=== PATIENT | female | born 1990 | race Caucasian/White ===

== ENCOUNTER 2019-08-11 15:13 | Emergency (ER) | payer MEDICAID ==
[~2019-08-11] VITALS: Ht 162.6 cm; Wt 65.3 kg
[~2019-08-11 15:13] MED LIST: ALPR-624 PO; AMOX-419 PO; ESCI10TA PO; IBUP-2697 PO; LACT1CAP26 PO
[2019-08-11 15:39] LABS: URINE HCG POSITIVE (NEG)
[2019-08-11 15:47] LABS: CLARITY,URINE SLIGHTLY CLOUDY (Clear); COLOR,URINE YELLOW (Yellow); GLUCOSE, URINE NEGATIVE (Neg); KETONES,URINE NEGATIVE (Neg); LEUKOCYTE ESTERASE ,URINE SMALL (Neg); NITRITES, URINE NEGATIVE (Neg); OCCULT BLOOD,URINE NEGATIVE (Neg); PROTEIN,URINE NEGATIVE (Neg); UROBILINOGEN,URINE 0.2 E.U/dL (0.2-1.0)
[2019-08-11 15:51] LABS: UA COLLECTION TYPE CLN CATCH MIDSTREAM
[2019-08-11 16:07] LABS: MUCUS STRANDS MANY /LPF (Neg); SQUAMOUS EPITHELIAL CELL,UR MANY /LPF (FEW)
[2019-08-11 16:08] LABS: BACTERIA,URINE 2+ /HPF (Neg); RBC,URINE 0-2 /HPF (0-2); WBC,URINE 0-4 /HPF (0-4)
[2019-08-11 17:24] VITALS: BP 116/70
== END 2019-08-11 17:25 | disposition home or self-care (01) ==
LOC: ER 15:13
DX: O26.891 Other specified pregnancy related conditions, first trimester (principal); R10.31 Right lower quadrant pain; O99.331 Smoking (tobacco) complicating pregnancy, first trimester; F17.200 Nicotine dependence, unspecified, uncomplicated; Z98.890 Other specified postprocedural states; Z3A.01 Less than 8 weeks gestation of pregnancy; Z88.1 Allergy status to other antibiotic agents; Z79.899 Other long term (current) drug therapy
CPT/HCPCS: 36415; 76801; 81001; 81025; 84702; 99284

== ENCOUNTER 2020-05-31 11:36 | Day surgery (SDC) | payer MEDICAID ==
[2020-05-25 12:55] LABS: BASOPHILS % (AUTO) 0.4 % (0-1); EOSINOPHILS # (AUTO) 0.1 X10'3 (0-0.9); EOSINOPHILS % (AUTO) 0.9 % (0-6); LYMPHOCYTES # (AUTO) 2.7 X10'3 (1.1-4.8); LYMPHOCYTES % (AUTO) 37.1 % (21-51); MEAN CORPUSCULAR HEMOGLOBIN 23.2 PG (27.0-31.0); MEAN CORPUSCULAR HGB CONC 31.3 g/dL (33.0-36.5); MEAN CORPUSCULAR VOLUME 74.1 FL (78-98); MEAN PLATELET VOLUME 9.5 FL (7.4-10.4); MONOCYTES # (AUTO) 0.4 X10'3 (0-0.9); MONOCYTES % (AUTO) 5.3 % (2-12); NEUTROPHILS # (AUTO) 4.1 X10'3 (1.8-7.7); NEUTROPHILS % (AUTO) 56.3 % (42-75); PRE OP HEMATOCRIT 38.1 % (35.0-45.0); PRE OP HEMOGLOBIN 11.9 g/dL (12.0-16.0); PRE OP PLATELET COUNT 335 X10'3 (140-440); RED BLOOD COUNT 5.14 X10'6 (4.20-5.60); RED CELL DISTRIBUTION WIDTH 15.8 % (11.5-14.5)
[2020-05-25 13:09] LABS: HCG SERUM QL NEGATIVE
[2020-05-25 13:18] LABS: ALBUMIN 4.1 G/DL (3.4-5.0); ALBUMIN/GLOBULIN RATIO 0.9 (1.1-1.5); ALKALINE PHOSPHATASE 98 IU/L (46-116); BLOOD UREA NITROGEN 11 MG/DL (7-18); BUN/CREATININE RATIO 15.3 (6.6-38.0); CALCIUM 9.5 MG/DL (8.5-10.1); CHLORIDE 102 MMOL/L (99-107); CREATININE 0.72 MG/DL (0.40-0.90); PRE OP ALT 50 U/L (30-65); PRE OP ANION GAP 9 (8-16); PRE OP AST 31 U/L (10-37); PRE OP BILIRUB, TOTAL 0.2 MG/DL (0.0-1.0); PRE OP GLUCOSE 92 MG/DL (70-104); PRE OP POTASSIUM 4.1 MMOL/L (3.4-5.1); PRE OP SODIUM 136 MMOL/L (135-145); TOTAL CARBON DIOXIDE 25.2 MMOL/L (24-32); TOTAL PROTEIN 8.7 G/DL (6.4-8.2); eGFR > 90 ML/MIN
[~2020-05-31] VITALS: Ht 157.5 cm; Wt 66.2 kg
[2020-05-31] VITALS (8 sets, daily range): BP systolic 109–119; BP diastolic 60–75
[~2020-05-31 11:36] MED LIST changes: +ACET-1008 PO; -ALPR-624 PO; -AMOX-419 PO; -ESCI10TA PO; -IBUP-2697 PO; -LACT1CAP26 PO; +ceFOXitin 2GM-NS 100mL ADDvant 100 ML IV ONE; +famotidine 20mg tablet PO ONE; +ringers solution, lacted 1,000 ML IV SCH
[2020-05-31] MEDS ORDERED: midazolam 2 mg/2 ml injection ONE (12:57)
[2020-05-31] MEDS ORDERED: fentaNYL/PF 50MCG/1 ML 2ML syringe ONE (12:57)
[2020-05-31] MEDS ORDERED: propofol inj 20 ML IV ONE (12:57)
[2020-05-31] MEDS ORDERED: LIDOcaine 2% (20mg/ml) 5ml vial ONE (12:57)
[2020-05-31] MEDS ORDERED: rocuronium 10mg/ml inj IV ONE (12:59)
[2020-05-31] MEDS ORDERED: neostigmine methylsulfate 1 MG/ML 10ml vial ONE (13:15)
[2020-05-31] MEDS ORDERED: glycopyrrolate 0.2mg/ml inj ONE (13:15)
[2020-05-31] MEDS ORDERED: ketorolac trometh. 30mg/ml inj. ONE (13:15)
[2020-05-31] MEDS ORDERED: dexamethasone sod phosphate 10mg/ml inj ONE (13:15)
[2020-05-31] MEDS ORDERED: sevoflurane 250ml liquid IH ONE (13:15)
[2020-05-31] MEDS ORDERED: ondansetron/PF 4mg/2ml inj ONE (13:30)
[2020-05-31] MEDS ORDERED: ringers solution, lacted 1,000 ML IV SCH (13:50)
[2020-05-31] MEDS ORDERED: meperidine/PF 25mg/ml syringe IV PRN ×3 (13:50)
[2020-05-31] MEDS ORDERED: proCHLORperazine 10 MG/2 ml inj IV PRN (13:50)
[2020-05-31] MEDS ORDERED: ondansetron/PF 4mg/2ml inj IV PRN (13:50)
--- NOTE | 2020-05-31 14:20 | NUR ---
Received from OR via [facility], accompanied by Anesthesiologist JAGRUTI and report given by Anesthesiolgist. SMALL AMT DRAINAGE TO BRENDAN PAD. NO PAIN. VSS, IV PATENT.
--- NOTE | 2020-05-31 15:20 | NUR ---
DC TO HOME VIA PRIVATE VEHICLE. NO PAIN, MINIMAL DRAINAGE ON PERIPAD. IV OUT WITH CANNULA INTACT. GIVEN INSTRUCTIONS, EDGAR DRIVING.
== END 2020-05-31 15:20 | disposition home or self-care (01) ==
LOC: PAS 11:36
PROVIDERS: ATTEND Specialist
DX: Z30.2 Encounter for sterilization (principal); K21.9 Gastro-esophageal reflux disease without esophagitis; Z11.59 Encounter for screening for other viral diseases; Z98.890 Other specified postprocedural states; Z90.49 Acquired absence of other specified parts of digestive tract; Z88.5 Allergy status to narcotic agent; Z88.8 Allergy status to other drugs, medicaments and biological substances; Z79.899 Other long term (current) drug therapy
CPT/HCPCS: 36415; 58670; 80053; 82948; 84703; 85025; 86885; 86900; 86901; J0694; J2001; J2250; J2405; J2704; J3010; J7120; U0003; A4618; A7000; J1100; J1885; J2710; J3490

== ENCOUNTER 2020-11-08 09:42 | Emergency (ER) | payer MEDICAID ==
[~2020-11-08] VITALS: Ht 157.5 cm; Wt 72.7 kg
[~2020-11-08 09:42] MED LIST changes: -ceFOXitin 2GM-NS 100mL ADDvant 100 ML IV ONE; -famotidine 20mg tablet PO ONE; -ringers solution, lacted 1,000 ML IV SCH
[2020-11-08 10:40] LABS: BASOPHILS % (AUTO) 0.2 % (0-1); EOSINOPHILS # (AUTO) 0.1 X10'3 (0-0.9); HEMATOCRIT 34.7 % (35.0-45.0); HEMOGLOBIN 11.2 g/dl (12.0-16.0); LYMPHOCYTES # (AUTO) 2.3 X10'3 (1.1-4.8); LYMPHOCYTES % (AUTO) 29.2 % (21-51); MEAN CORPUSCULAR HEMOGLOBIN 25.7 PG (27.0-31.0); MEAN CORPUSCULAR HGB CONC 32.4 g/dL (33.0-36.5); MEAN CORPUSCULAR VOLUME 79.5 FL (78-98); MEAN PLATELET VOLUME 9.2 FL (7.4-10.4); MONOCYTES # (AUTO) 0.4 X10'3 (0-0.9); MONOCYTES % (AUTO) 4.6 % (2-12); PLATELET COUNT 298 X10'3 (140-440); RED BLOOD COUNT 4.36 X10'6 (4.20-5.60); RED CELL DISTRIBUTION WIDTH 16.8 % (11.5-14.5); WHITE BLOOD COUNT 7.7 X10'3 (4.5-11.0)
[2020-11-08 10:53] LABS: ALANINE AMINOTRANSFERASE 30 U/L (12-78); ALBUMIN 3.8 G/DL (3.4-5.0); ALBUMIN/GLOBULIN RATIO 0.9 (1.1-1.5); ALKALINE PHOSPHATASE 76 IU/L (46-116); ANION GAP 11 (8-16); ASPARTATE AMINO TRANSFERASE 16 U/L (10-37); BILIRUBIN,TOTAL 0.3 MG/DL (0.1-1.0); BLOOD UREA NITROGEN 9 MG/DL (7-18); BUN/CREATININE RATIO 12.7 (6.6-38.0); CALCIUM 8.7 MG/DL (8.5-10.1); CHLORIDE 104 MMOL/L (99-107); CREATININE 0.71 MG/DL (0.40-0.90); GLUCOSE 97 MG/DL (70-104); POTASSIUM 3.7 MMOL/L (3.5-5.1); SODIUM 139 MMOL/L (135-145); TOTAL CARBON DIOXIDE 24.2 MMOL/L (24-32); TOTAL PROTEIN 7.9 G/DL (6.4-8.2); eGFR > 90 ML/MIN
[2020-11-08] MEDS ORDERED: ibuprofen tablet 400 MG TABLET PO ONE (11:35)
[2020-11-08] MEDS ORDERED: estrogens, conjugated 25mg inj IV ONE ×3 (11:35→15:50)
[2020-11-08] MEDS ORDERED: NORE-105 PO (12:15)
[2020-11-08] MEDS ORDERED: IBUP-1984 PO (12:15)
[2020-11-08 12:54] LABS: CLARITY,URINE SLIGHTLY CLOUDY (Clear); COLOR,URINE YELLOW (Yellow); GLUCOSE, URINE NEGATIVE (Neg); KETONES,URINE NEGATIVE (Neg); LEUKOCYTE ESTERASE ,URINE TRACE (Neg); NITRITES, URINE NEGATIVE (Neg); OCCULT BLOOD,URINE LARGE (Neg); PH,URINE 5.5 (4.8-8.0); PROTEIN,URINE TRACE mg/dl (Neg); UROBILINOGEN,URINE 0.2 E.U/dL (0.2-1.0)
[2020-11-08 12:56] LABS: UA COLLECTION TYPE CLN CATCH MIDSTREAM
[2020-11-08 12:57] LABS: URINE HCG NEGATIVE (NEG)
[2020-11-08 13:01] LABS: BACTERIA,URINE NONE SEEN /HPF (Neg); MUCUS STRANDS NONE SEEN /LPF (Neg); RBC,URINE TNTC /HPF (0-2); SQUAMOUS EPITHELIAL CELL,UR FEW /LPF (FEW); WBC,URINE 0-4 /HPF (0-4)
--- NOTE | 2020-11-08 14:10 | NUR ---
PT HAS SOAKED HER MENSTRAL PAD THROUGH THAT WAS PUT ON AN HOUR AGO.
--- NOTE | 2020-11-08 14:45 | NUR ---
SPOKE WITH [facility] IN [facility], MEDICATION IS BEING OBTAINED FROM OUTSIDE OF PHARMACY. MEDICATION TO BE DELIVERED IN 30 MINUTES.
--- NOTE | 2020-11-08 15:20 | NUR ---
UP TO BATHROOM AGAIN. PT STATES HER BLEEDING HAS DECREASED BY 25%.
--- NOTE | 2020-11-08 16:33 | NUR ---
Note [email or web address] in EDM - 11/08/20 at 1638 by SAVAGE HYACINTH EDWARD and she said that the watch case polisher has already left for the day but she also states the MD Mckeon is the pt's primary MD and he is on shift today. will inform BRANDY Ordaz about this. we are trying to figure out if there is a place that can take the pt. spoke with pt's daughter Aniya about the pt's hx and what has led up to this. she states that a placed called [facility] in [place] has a room for him if he is admitted from the hospital. he was discharged from a place called [facility] in [place] on sunday with the understanding that he could have full conversations and was able to get up with some minimal assistance. but this is not the case. the pt is a full assist and is not able to have full conversations. he comprehends an easy yes or no question when asked a few times. you can see recognition in his eyes.
[2020-11-08 17:24] VITALS: BP 105/67
== END 2020-11-08 17:15 | disposition home or self-care (01) ==
LOC: ER 09:42
DX: N92.1 Excessive and frequent menstruation with irregular cycle (principal); Z98.891 History of uterine scar from previous surgery; Z98.51 Tubal ligation status; Z88.1 Allergy status to other antibiotic agents; Z88.6 Allergy status to analgesic agent; Z88.8 Allergy status to other drugs, medicaments and biological substances; Z79.899 Other long term (current) drug therapy
CPT/HCPCS: 36415; 80053; 81001; 81025; 85025; 87088; 96374; 96376; 99284; J1410